=== PATIENT | male | born 1965 | race African-American/Black ===

== ENCOUNTER 2019-08-24 07:12 | Emergency (ER) | payer BC ==
[2019-08-24 07:48] LABS: APPEARANCE,URINE CLEAR; BILIRUBIN,URINE NEGATIVE (NEGATIVE); COLOR,URINE YELLOW; GLUCOSE, URINE NEGATIVE (NEGATIVE); KETONES,URINE NEGATIVE (NEGATIVE); LEUKOCYTE ESTERASE,URINE NEGATIVE (NEGATIVE); NITRITE,URINE NEGATIVE (NEGATIVE); PROTEIN,URINE NEGATIVE (NEGATIVE); URINE SPECIFIC GRAVITY 1.019; UROBILINOGEN,URINE NEGATIVE mg/dL (<2.0)
[2019-08-24 09:31] LABS: ABSOLUTE LYMPHOCYTES (AUTO) 1.3 10^3/uL (0.5-4.7); ABSOLUTE MONOCYTES (AUTO) 0.7 10^3/uL (0.1-1.4); ABSOLUTE NEUT (AUTO) 9.1 10^3/uL (1.7-8.2); BASOPHILS % (AUTO) 0.3 % (0-2); HEMATOCRIT 39.8 % (37.9-51.0); HEMOGLOBIN 13.9 g/dL (13.5-17.0); LYMPHOCYTES % (AUTO) 11.5 % (13-45); MEAN CORPUSCULAR HEMOGLOBIN 30.1 pg (27.0-33.4); MEAN CORPUSCULAR VOLUME 86 fl (80-97); MONOCYTES % (AUTO) 6.6 % (3-13); PLATELET COUNT 262 10^3/uL (150-450); RED BLOOD COUNT 4.64 10^6/uL (4.35-5.55); RED CELL DISTRIBUTION WIDTH 13.2 % (11.5-14.0); SEGMENTED NEUTROPHILS % (AUTO) 81.6 % (42-78); TOTAL CELLS COUNTED % (AUTO) 100 %; WHITE BLOOD COUNT 11.2 10^3/uL (4.0-10.5)
--- NOTE | 2019-08-24 09:41 | ER Document Report ---
ED GI/ - General Chief Complaint: Flank Pain Stated Complaint: FLANK PAIN Time Seen by Provider: 08/24/19 09:30 Primary Care Provider: LYNSEY BUCKNER PA-C [Primary Care Provider] - Follow up as needed Mode of Arrival: Ambulatory Information source: Patient Notes: Patient presents complaining of right flank pain that radiated around to right sided abdomen into the groin that started around 530 this morning. Patient states that it did make him nauseous and he vomited twice. Patient denies any urinary symptoms or fever. Patient denies any penile discharge. Patient presently denies any pain symptoms at this time. TRAVEL OUTSIDE OF THE [place] IN LAST 30 DAYS: No - HPI Patient complains to provider of: Flank pain, Vomiting Onset: This morning Timing/Duration: Gone Quality of pain: Sharp Severity at maximum: Severe Severity in ED: None Pain Level: Denies Location: Right flank Associated symptoms: Nausea, Vomiting. denies: Diarrhea, Urinary hesitancy, Urinary frequency, Urinary retention, Urinary urgency Exacerbated by: Denies Relieved by: Denies Similar symptoms previously: No Recently seen / treated by doctor: No - Related Data Allergies/Adverse Reactions: No Known Allergies Allergy (Verified 09/09/18 09:53) Past Medical History - General Information source: Patient - Social History Smoking Status: Never Smoker Frequency of alcohol use: None Drug Abuse: None Occupation: pastro Lives with: Family Family History: Reviewed & Not Pertinent - Medical History Medical History: Negative - Past Medical History Cardiac Medical History: Denies: Hx Coronary Artery Disease, Hx Heart Attack, Hx Hypertension Pulmonary Medical History: Denies: Hx Asthma, Hx Bronchitis, Hx COPD, Hx Pneumonia Neurological Medical History: Denies: Hx Cerebrovascular Accident, Hx Seizures Musculoskeletal Medical History: Denies Hx Arthritis Surgical Hx: Negative - Immunizations Hx Diphtheria, Pertussis, Tetanus Vaccination: - UNSURE Review of Systems - Review of Systems Constitutional: No symptoms reported. denies: Fever, Recent illness EENT: No symptoms reported Cardiovascular: No symptoms reported Respiratory: No symptoms reported Gastrointestinal: Abdominal pain, Nausea, Vomiting Genitourinary: Flank pain. denies: Dysuria, Hematuria Male Genitourinary: No symptoms reported Musculoskeletal: Back pain Skin: No symptoms reported Hematologic/Lymphatic: No symptoms reported Neurological/Psychological: No symptoms reported Physical Exam - Vital signs Vitals: Temp Pulse Resp BP Pulse Ox 98.3 F 63 14 154/91 H 97 06/25/20 07:17 08/24/19 07:17 08/24/19 07:17 08/24/19 07:17 08/24/19 07:17 - General General appearance: Appears well, Alert In distress: None - HEENT Head: Normocephalic, Atraumatic Eyes: Normal Conjunctiva: Normal Nasal: Normal Mouth/Lips: Normal Mucous membranes: Normal Neck: Normal, Supple. No: Lymphadenopathy - Respiratory Respiratory status: No respiratory distress Chest status: Nontender Breath sounds: Normal. No: Rales, Rhonchi, Stridor, Wheezing Chest palpation: Normal - Cardiovascular Rhythm: Regular Heart sounds: S1 appreciated, S2 appreciated - Abdominal Inspection: Normal Distension: No distension Bowel sounds: Normal Tenderness: Nontender Organomegaly: No organomegaly - Back Back: Normal, Nontender. No: CVA tenderness - Extremities General upper extremity: Normal inspection, Normal strength General lower extremity: Normal inspection, Normal strength - Neurological Neuro grossly intact: Yes Cognition: Normal [place] Coma Scale Eye Opening: Spontaneous Anel Coma Scale Verbal: Oriented Anel Coma Scale Motor: Obeys Commands Anel Coma Scale Total: 15 - Psychological Associated symptoms: Normal affect, Normal mood - Skin Skin Temperature: Warm Skin Moisture: Dry Skin Color: Normal Course - Re-evaluation Re-evalutation: 08/24/19 10:21 Patient's pain resolved at this time. Patient CT report demonstrates recently passed kidney stone residing in the bladder at this time. Patient without any UTI or fever. Patient's nausea symptoms resolved at this time. Will plan for discharge with outpatient follow-up with primary doctor for recheck. Patient advised of incidental finding of renal cyst noted on CT scan. - Vital Signs Vital signs: Temp Pulse Resp BP Pulse Ox 98.3 F 66 20 145/81 H 98 08/24/19 10:34 08/24/19 10:34 08/24/19 10:34 08/24/19 10:34 08/24/19 10:34 - Laboratory Result Diagrams: 08/24/19 09:18 08/24/19 09:18 Laboratory results interpreted by me: 08/24/19 08/24/19 08/24/19 07:32 09:18 09:18 WBC 11.2 H Lymph % (Auto) 11.5 L Absolute Neuts (auto) 9.1 H Seg Neutrophils % 81.6 H Glucose 188 H Urine Blood SMALL H 08/24/19 10:21 Labs- All tests 24 hr 08/24/19 08/24/19 08/24/19 07:32 09:18 09:18 WBC 11.2 H RBC 4.64 Hgb 13.9 Hct 39.8 MCV 86 MCH 30.1 MCHC 35.0 RDW 13.2 Plt Count 262 Lymph % (Auto) 11.5 L [place] % (Auto) 6.6 Eos % (Auto) 0.0 Baso % (Auto) 0.3 Absolute Neuts (auto) 9.1 H Absolute Lymphs (auto) 1.3 Absolute Monos (auto) 0.7 Absolute Eos (auto) 0.0 Absolute Basos (auto) 0.0 Seg Neutrophils % 81.6 H Sodium 138.4 Potassium 4.4 Chloride 103 Carbon Dioxide 27 Anion Gap 8 BUN 18 Creatinine 1.23 Est GFR ( Amer) > 60 Est GFR (MDRD) Non-Af > 60 Glucose 188 H Calcium 9.5 Total Bilirubin 0.7 Direct Bilirubin 0.0 Neonat Total Bilirubin Not Reportable Neonat Direct Bilirubin Not Reportable Neonat Indirect Bili Not Reportable AST 21 ALT 17 Alkaline Phosphatase 55 Total Protein 7.8 Albumin 4.5 Lipase 50.2 Urine Color YELLOW Urine Appearance CLEAR Urine pH 6.0 Ur Specific [place] 1.019 Urine Protein NEGATIVE Urine Glucose (UA) NEGATIVE Urine Ketones NEGATIVE Urine Blood SMALL H Urine Nitrite NEGATIVE Urine Bilirubin NEGATIVE Urine Urobilinogen NEGATIVE Ur Leukocyte Esterase NEGATIVE Urine WBC (Auto) 3 Urine RBC (Auto) 12 Urine Mucus (Auto) MOD Urine Ascorbic Acid NEGATIVE - Diagnostic Test Radiology reviewed: Reports reviewed Discharge - Discharge Clinical Impression: Kidney stone on right side Condition: Stable Disposition: HOME, SELF-CARE Additional Instructions: Return immediately for any new or worsening symptoms Followup with your primary care provider, call tomorrow to make a followup appointment There was an incidental renal cyst noted on the right kidney KIDNEY STONE: You are passing or have passed a kidney stone. These stones are usually due to increased calcium or uric acid concentrations in your urine. Stones within the kidney itself are not painful. The pain occurs as the stone leaves the kidney to pass down the long tube, called the ureter, leading to the bladder. If the stone is small, it will usually pass by itself. Most patients can pass the stone at home. You will usually receive medications for pain, nausea or vomiting, and sometimes a medication to assist in passing the kidney stone. However, if the pain is very severe or if vomiting prevents you from taking oral pain medications, you may need to return for further treatment. Drink three or four quarts of fluids per day. You will be given pain medication (if needed) and urine strainers. Strain all your urine to see if the stone passes. If your doctor has asked you to bring the stone in for analysis, return with the stone once it has passed. Return if pain or vomiting become severe, if you develop a high fever, if you are unable to pass your urine, or if other unusual symptoms occur. [place] MEDICATION: You have been given a medication to suppress nausea and vomiting. This type of medication can be given as a shot, pill, or suppository. It will usually last for many hours. Pills and shots usually last six to eight hours, suppositories last about 12 hours. For the typical illness, only one or two doses of the medication may be necessary. Mild lightheadedness may occur. This type of medicine can cause drowsiness. Do not drive or operate dangerous machinery while under its influence. Do not mix with alcohol. See your doctor at once if you have muscle spasms or tightness, or uncontrollable motions (particularly of the neck, mouth, or jaw). Persistent vomiting or severe lightheadedness should also be evaluated by the physician. FOLLOW-UP CARE: If you have been referred to a physician for follow-up care, call the physicians office for an appointment as you were instructed or within the next two days. If you experience worsening or a significant change in your symptoms, notify the physician immediately or return to the Emergency Department at any time for re-evaluation. Prescriptions: Ondansetron [Zofran Odt 4 mg Tablet] 1 tab PO Q6H #15 tab.rapdis Referrals: LYNSEY BUCKNER PA-C [Primary Care Provider] - Follow up as needed
[2019-08-24 09:50] LABS: ALBUMIN 4.5 g/dL (3.5-5.0); ALKALINE PHOSPHATASE 55 U/L (38-126); ANION GAP 8 (5-19); ASPARTATE AMINO TRANSFERASE 21 U/L (17-59); BILIRUBIN,TOTAL 0.7 mg/dL (0.2-1.3); BLOOD UREA NITROGEN 18 mg/dL (7-20); CALCIUM 9.5 mg/dL (8.4-10.2); CARBON DIOXIDE 27 mmol/L (22-30); CHLORIDE 103 mmol/L (98-107); GLUCOSE 188 mg/dL (75-110); POTASSIUM 4.4 mmol/L (3.6-5.0); TOTAL PROTEIN 7.8 g/dL (6.3-8.2)
--- NOTE | 2019-08-24 10:16 | RADIOLOGY REPORT (SQ) ---
EXAM DESCRIPTION: CT ABD/PELVIS NO ORAL OR IV IMAGES COMPLETED DATE/TIME: 08/24/2019 9:55 am REASON FOR STUDY: R flank pain COMPARISON: None. TECHNIQUE: CT scan of the abdomen and pelvis performed without intravenous or oral contrast. Images reviewed with lung, soft tissue, and bone windows. Reconstructed coronal and sagittal MPR images revi ewed. All images stored on PACS. All CT scanners at this facility use dose modulation, iterative reconstruction, and/or weight based d osing when appropriate to reduce radiation dose to as low as reasonably achievable (ALARA). [facility]: Dose Right [facility]: CareDose [facility]: Dose Right [facility]: Teradose 4D [facility]: Smart Ram Power RADIATION DOSE: CT Rad equipment meets quality standard of care and radiation dose reduction techniq ues were employed. CTDIvol: 10.2 mGy. DLP: 581 mGy-cm.mGy. LIMITATIONS: None. FINDINGS: LOWER CHEST: No significant findings. No nodules or infiltrates. NON-CONTRASTED LIVER, SPLEEN, ADRENALS: Evaluation limited by lack of IV contrast. No identified sign ificant masses. PANCREAS: No masses. No peripancreatic inflammatory changes. GALLBLADDER: No identified stones by CT criteria. No inflammatory changes to suggest cholecystitis. RIGHT KIDNEY AND URETER: No suspicious masses. Assessment limited by lack of IV contrast. Incidental note is made of a 4.2 cm simple exophytic cyst. No significant calcifications. Moderate hydronep hrosis and ureterectasis on the basis of a recently passed stone seen dependently within the bladder, measuring on the order of 2 mm, rounded. LEFT KIDNEY AND URETER: No suspicious masses. Assessment limited by lack of IV contrast. Incidental note is made of a retroaortic left renal vein. Punctate nonobstructing nephrolith is seen within th e inferior pole collecting system. No hydronephrosis or hydroureter. AORTA AND RETROPERITONEUM: No aneurysm. No retroperitoneal masses or adenopathy. BOWEL AND PERITONEAL CAVITY: No obvious masses or inflammatory changes. No free fluid. APPENDIX: Normal. PELVIS, BLADDER, AND ABDOMINAL WALL:No abnormal masses. No free fluid. Bladder normal. BONES: Degenerative changes are seen of the hips and spine. OTHER: No other significant finding. IMPRESSION: Moderate right-sided hydronephrosis and ureterectasis on the basis of a recently passed 2 mm rounded urolith, residing within the bladder. COMMENT: Quality ID # [id number]: Final reports with documentation of one or more dose reduction techniques (e.g., Automated exposure control, adjustment of the mA and/or kV according to patient size, use of iterative reconstruction technique) TECHNICAL DOCUMENTATION: JOB ID: [id number] 2010 [employer]- All Rights Reserved Reading location - IP/workstation name: [email or web address]
[2019-08-24 10:36] VITALS: BP 145/81
== END 2019-08-24 10:42 | disposition home or self-care (01) ==
LOC: ER 07:12
DX: N21.0 Calculus in bladder (principal); Q61.01 Congenital single renal cyst; R11.2 Nausea with vomiting, unspecified; R10.9 Unspecified abdominal pain; M54.9 Dorsalgia, unspecified
CPT/HCPCS: 36415; 74176; 80053; 81001; 83690; 85025; 99284